=== PATIENT | male | born 1955 | race Caucasian/White ===

== ENCOUNTER 2020-01-28 14:09 | Emergency (ER) | payer OTHER ==
--- NOTE | 2020-01-28 15:02 | EDM.PDOC ---
ED HPI GENERAL MEDICAL PROBLEM - General Chief Complaint: Upper Extremity Injury/Pain Stated Complaint: LT THUMB INJURY Time Seen by Provider: 01/28/20 14:35 Source of Information: Reports: Patient History Limitations: Reports: No Limitations - History of Present Illness INITIAL COMMENTS - FREE TEXT/NARRATIVE: HISTORY AND PHYSICAL: History of present illness: Patient is a 64-year-old male who presents to the ED today with concern of left thumb injury/laceration that occurred just prior to arrival to the ED. Patient states he was in the garage using a hammer when he hit his left thumb with a hammer. Patient states he is fully able to move his thumb. Patient states he is up-to-date on his tetanus and just had it a few years ago. Patient denies any other symptoms or concerns. Patient denies fever, chills, chest pain, shortness of breath, or cough. Denies headache, neck stiff ness, change in vision, syncope, or near syncope. Denies nausea, vomiting, abdominal pain, diarrhea, constipation, or dysuria. Has not noted any blood in urine or stool. Patient has been eating and drinking appropriately. Review of systems: As per history of present illness and below otherwise all systems reviewed and negative. Past medical history: As per history of present illness and as reviewed below otherwise noncontributory. Surgical history: As per history of present illness and as reviewed below otherwise noncontributory. Social history: See social history for further information Family history: As per history of present illness and as reviewed below otherwise non contributory. Physical exam: General: Patient is alert, oriented, and in no acute distress. Patient sitting comfortably on exam table. HEENT: Atraumatic, normocephalic, pupils equal and reactive bilaterally, negative for conjunctival pallor or scleral icterus, mucous membranes moist, TMs normal bilaterally, throat clear, neck supple, nontender, trachea midline. No drooling or trismus noted. No meningeal signs. No hot potato voice noted. Lungs: Clear to auscultation, breath sounds equal bilaterally, chest nontender. Heart: S1S2, regular rate and rhythm without overt murmur Abdomen: Soft, nondistended, nontender. Negative for masses or hepatosplenomegaly. Negative for costovertebral tenderness. Pelvis: Stable nontender. Genitourinary: Deferred. Rectal: Deferred. Skin: Intact, warm, dry. No lesions or rashes noted. Extremities: There is an irregular/macerated 4 cm laceration of the patient's distal left thumb. There is a 1cm area of superficial skin missing in the central laceration. Radial pulses grossly intact of the left upper extremity with capillary refill less than 2 seconds. Patient does have full range of motion of the complete left hand without deficit. Otherwise, atraumatic, negative for cords or calf pain. Neurovascular unremarkable. Neuro: Awake, alert, oriented. Cranial nerves II through XII unremarkable. Cerebellum unremarkable. Motor and sensory unremarkable throughout. Exam nonfocal. Notes: Discussed importance for follow-up with a primary care provider. Voices understanding and is agreeable to plan of care. Denies any further questions or concerns at this time. Diagnostics: Hand x-ray Therapeutics: Sutures, Bupivacaine, Lidocaine, sterile dressing placed by nursing staff Prescription: None Impression: Thumb laceration, left Plan: 1. Keep the area clean and dry. Continue to monitor for signs of infection as discussed. Sutures to be removed in 7-10 days. 2. Tylenol and/or ibuprofen as directed and as needed for pain management and discomfort. 3. Please follow-up with your primary care provider as discussed. Return to the ED as needed and as discussed. Definitive disposition and diagnosis as appropriate pending reevaluation and review of above. left thumb Pain Score (Numeric/FACES): 2 - Related Data Allergies Allergy/AdvReac Type Severity Reaction Status Date / Time No Known Allergies Allergy Verified 01/28/20 14:42 Home Meds: Home Meds Citalopram Hydrobromide [Celexa] 20 mg PO Q24H 01/28/20 [History] Metoprolol Succinate 25 mg PO DAILY 01/28/20 [History] Sildenafil Citrate 50 mg PO DAILY 01/28/20 [History] Simvastatin 20 mg PO DAILY 01/28/20 [History] lisinopriL [Zestril] 10 mg PO DAILY 01/28/20 [History] Past Medical History Cardiovascular History: Reports: Hypertension Musculoskeletal History: Reports: Arthritis Psychiatric History: Reports: Depression - Past Surgical History Other Male Surgeries/Procedures: kidney removal Social & Family History - Tobacco Use Smoking Status *Q: Current Every Day Smoker Years of Tobacco use: 6 Packs/Tins Daily: 0.5 - Recreational Drug Use Recreational Drug Use: No Review of Systems - Review of Systems Review Of Systems: Comprehensive ROS is negative, except as noted in HPI. ED EXAM, GENERAL - Physical Exam Exam: See Below (See dictation) ED TRAUMA EXTREMITY PROCEDURES - Laceration/Wound Repair Left Distal Digit - 1st (Thumb) Lac/Wound Length In cm: 4 Appearance: Muscle, Irregular, Mildly Contaminated Distal NVT: Neuro & Vascular Intact, No Tendon Injury Anesthetic Type: Digital Local Anesthesia - Lidocaine (Xylocaine): 1% Plain Local Anesthesia - Bupivicaine (Marcaine): 0.5% Plain Local Anesthetic Volume: Other (10cc) Skin Prep: Chlorhexidine (Hibiciens), Providone-Iodine (Betadine), Saline Saline Irrigation (cc's): 150 Exploration/Debridement/Repair: Wound Explored, In a Bloodless Field, Explored to Base, No Foreign Material Found, Wound Margins Revised (masserated laceration with 1cm missing skin in central laceration area) Closed With: Sutures Suture Size: 4-0 # of Sutures: 7 Suture Type: Silk Suture Size: 4-0 Drain Placement: No Sterile Dressing Applied: Nurse Tetanus Status Addressed: Yes (up to date) Complications: No Course - Vital Signs Last Recorded V/S: Last Vital Signs Temp 98.4 F 01/28/20 14:37 Pulse 71 01/28/20 14:37 Resp 16 01/28/20 14:37 BP 128/82 01/28/20 14:37 Pulse Ox 92 L 01/28/20 14:37 - Orders/Labs/Meds Meds: Medications Discontinued Medications Generic Name Dose Route Start Last Admin Trade Name Elba PRN Reason Stop Dose Admin Bupivacaine HCl 10 ml 01/28/20 15:11 Sensorcaine-Mpf 0.5% INJECT 01/28/20 15:12 ONETIME ONE Lidocaine HCl 5 ml 01/28/20 15:10 Xylocaine-Mpf 1% INJECT 01/28/20 15:11 ONETIME ONE Departure - Departure Time of Disposition: 16:21 Disposition: Home, Self-Care 01 Clinical Impression: Thumb laceration Qualifiers: Encounter type: initial encounter Damage to nail status: without damage Foreign body presence: unspecified Laterality: left Qualified Code(s): S61.012A - Laceration without foreign body of left thumb without damage to nail, initial encounter - Discharge Information Referrals: [facility] [Primary Care Provider] - Forms: ED Department Discharge Additional Instructions: The following information is given to patients seen in the emergency department who are being discharged to home. This information is to outline your options for follow-up care. We provide all patients seen in our emergency department with a follow-up referral. The need for follow-up, as well as the timing and circumstances, are variable depending upon the specifics of your emergency department visit. If you don't have a primary care physician on staff, we will provide you with a referral. We always advise you to contact your personal physician following an emergency department visit to inform them of the circumstance of the visit and for follow-up with them and/or the need for any referrals to a consulting specialist. The emergency department will also refer you to a specialist when appropriate. This referral assures that you have the opportunity for follow-up care with a specialist. All of these measure are taken in an effort to provide you with optimal care, which includes your follow-up. Under all circumstances we always encourage you to contact your private physician who remains a resource for coordinating your care. When calling for follow-up care, please make the office aware that this follow-up is from your recent emergency room visit. If for any reason you are refused follow-up, please contact the [facility] Emergency Department at and asked to speak to the emergency department charge nurse. [facility] [address] [place] [address] [place] [address] 1. Keep the area clean and dry. Continue to monitor for signs of infection as discussed. Sutures to be removed in 7-10 days. 2. Tylenol and/or ibuprofen as directed and as needed for pain management and discomfort. 3. Please follow-up with your primary care provider as discussed. Return to the ED as needed and as discussed. Sepsis Event Note (ED) - Evaluation Sepsis Screening Result: No Definite Risk - Focused Exam Vital Signs: Vital Signs Temp Pulse Resp BP Pulse Ox 01/28/20 14:37 98.4 F 71 16 128/82 92 L
--- NOTE | 2020-01-28 15:06 | CR ---
Left hand: 3 views of the left hand were obtained. Metallic densities are noted at the level of the DIP joint of the fifth finger in an anterior direction. Linear foreign body is seen at the level of the base of the distal phalanx of the fourth finger in an anterior direction. Small metallic density also noted within the thumb at the level of the proximal phalanx. Soft tissue injury is noted within the distal thumb. Severe degenerative change is noted between the radius and navicular bone. Chondrocalcinosis is noted within the triangular fibrocartilage. No acute fracture, dislocation or other bony abnormality is appreciated. Impression: 1. Metallic soft tissue foreign bodies as noted above. 2. 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 3. Chondrocalcinosis within the triangular fibrocartilage. Diagnostic code #3 This report was dictated in MDT
[2020-01-28] MEDS ORDERED: Bupivacaine 0.5% 10 ML SDV INJECT ONE (15:11)
== END 2020-01-28 16:40 | disposition home or self-care (01) ==
LOC: MW.ED 14:09
DX: S61.012A Laceration without foreign body of left thumb without damage to nail, initial encounter (principal); I10 Essential (primary) hypertension; F32.9 Major depressive disorder, single episode, unspecified; F17.210 Nicotine dependence, cigarettes, uncomplicated; Z79.899 Other long term (current) drug therapy; W26.8XXA Contact with other sharp object(s), not elsewhere classified, initial encounter; Y92.59 Other trade areas as the place of occurrence of the external cause
CPT/HCPCS: 12002; 73130; 99283; J2001; J3490